=== PATIENT | male | born 1950 | race Two or more races ===

== ENCOUNTER → 2024-03-09 | Outpatient (BNVA) | payer MEDICARE, MEDICAID, SELFPAY | END | disposition home or self-care (01) | PROVIDERS: Visit Provider Urology | DX: C61 Malignant neoplasm of prostate (principal); R97.20 Elevated prostate specific antigen [PSA]; I10 Essential (primary) hypertension | CPT/HCPCS: 99212; G0463 ==

== ENCOUNTER → 2024-04-16 | Outpatient (BNVA) | payer MEDICARE, MEDICAID, SELFPAY | END | disposition home or self-care (01) | PROVIDERS: PCP Nurse Practitioner Family; Referring Provider Nurse Practitioner Family; Visit Provider Urology | DX: C61 Malignant neoplasm of prostate (principal); Z90.79 Acquired absence of other genital organ(s); I10 Essential (primary) hypertension; E78.00 Pure hypercholesterolemia, unspecified; Z87.891 Personal history of nicotine dependence | CPT/HCPCS: 99212; G0463 ==

== ENCOUNTER → 2024-04-24 | Outpatient (BNVA) | payer MEDICARE, MEDICAID, SELFPAY | END | disposition home or self-care (01) | PROVIDERS: PCP Nurse Practitioner Family; Referring Provider Nurse Practitioner Family; Visit Provider Urology | DX: C61 Malignant neoplasm of prostate (principal); Z46.6 Encounter for fitting and adjustment of urinary device; I10 Essential (primary) hypertension; E78.00 Pure hypercholesterolemia, unspecified | CPT/HCPCS: 51600; 74430; 96372; 99212; J1580; Q9958; G0463 ==

== ENCOUNTER → 2024-04-24 | Outpatient (CLI) | payer MEDICARE, MEDICAID, SELFPAY ==
--- NOTE | 2024-04-24 10:13 | XR_ITS ---
Examination: Cystogram 15 spot fluoroscopic films of the bladder AP WREN SANTO crosstable lateral AP overhead pelvic films Fluoroscopy Exam date and time: April 24, 2024 1053 hours INDICATIONS: Diagnosis malignant neoplasm prostate post prostatectomy TECHNIQUE AND FINDINGS: Bladder filled with 150 cc Cystografin The bladder appears intact on the multiple spot fluoroscopic views No ureteral reflux Fluoroscopy 0.3 minutes radiation dose 32.04 milligray 15 spot fluoroscopic films IMPRESSION: Intact urinary bladder
== END | disposition home or self-care (01) ==
PROVIDERS: PCP Urology; Referring Provider Urology; Visit Provider Urology
DX: C61 Malignant neoplasm of prostate (principal)
CPT/HCPCS: 51600; 74430; Q9958

== ENCOUNTER → 2024-07-17 | Outpatient (CLI) | payer MEDICARE, SELFPAY ==
[2024-07-17 10:56] LABS: Prostate Specific Antigen 1.11 ng/mL (0-4.00)
== END | disposition home or self-care (01) ==
LOC: COPL 09:10
PROVIDERS: PCP Urology; Referring Provider Urology; Visit Provider Urology
DX: C61 Malignant neoplasm of prostate (principal)
CPT/HCPCS: 36415; 84153

== ENCOUNTER → 2024-07-24 | Outpatient (BNVA) | payer MEDICARE, SELFPAY | END | disposition home or self-care (01) | PROVIDERS: PCP Nurse Practitioner Family; Referring Provider Nurse Practitioner Family; Visit Provider Urology | DX: C61 Malignant neoplasm of prostate (principal); N52.9 Male erectile dysfunction, unspecified; N39.3 Stress incontinence (female) (male); I10 Essential (primary) hypertension; Z90.79 Acquired absence of other genital organ(s); E66.9 Obesity, unspecified; Z87.891 Personal history of nicotine dependence; E78.00 Pure hypercholesterolemia, unspecified | CPT/HCPCS: 81003; 99213; G0463 ==

== ENCOUNTER 2024-08-27 10:20 | Outpatient (RCR) | payer MEDICARE, MEDICAID, SELFPAY ==
--- NOTE | 2024-08-08 11:56 | CTCCONSULT_ITS ---
[facility] [address] [place], [place] [address] Consultation Note Date: 08/08/2024 MR#: [id number] Name: GISSELLE MENON : 1950 Dx: C61 prostate cancer Referring physician. Timbo Dias MD History of Present Illness: Patient is a 74-year-old gentleman underwent radical prostatectomy for prostate [place] [facility] [place]. Preop PSA 28.4. Final path acinar adeno CA prostate group 5 Evans's 4+5 = 9 extraprostatic extension right posterolateral left posterior lymphatic and or vascular perineural invasion present. Linear length of margin involvement carcinoma greater than 3 mm with margins involved right apical left apical left posterior. 27 lymph nodes negative for tumor. pT3pN0. Patient had preop imaging studies bone scan CT scan 03/23/2024 no obvious mets abdomen pelvis, nonspecific uptake in spine, ribs. PSA noted to be elevated June 1824 1.11. Patient now referred for radiation oncology consultation. Patient currently feels well although he has frequency and nocturia. Past Medical History: Asthma high blood pressure history of left knee replacement Meds none allergies none Social History: Patient Icelandic-speaking is a former smoker retired Review of Systems: Has erectile difficulties nocturia frequency Physical Exam: General: Well-appearing gentleman in no acute distress HEENT: Atraumatic no cephalic extraocular is intact no oral lesion no cervical or supraclavicular adenopathy CV: Chest clear to auscultation heart regular rate and rhythm ABD: Soft no organomegaly or tenderness EXT: No signs clubbing or edema. Assessment:1, [id number] adeno CA of prostate group extraprostatic extension perineural lymphatic vascular invasion present. Preop PSA 28.4 Surgery performed 04/13/2024. [facility] PSA 1.July 17. 2. Agree with ADT plus radiation therapy to the prostate region approximately 6840 cGy using modern VMAT method. Side effects explained. 3. Thank you very much for allowing me to evaluate and manage this patient Cc: Timbo Dias MD Electronically signed by: Clemente Munson MD, DABR 08/08/2024 11:54 AM
--- NOTE | 2024-08-08 11:57 | CTCTXPLN_ITS ---
[facility] [address] [place], [place] [address] Physician Clinical Treatment Planning Note Date of Service: 08/08/2024 Name: GISSELLE MENONJAQUELIN Tijerina.: 1950 The patient has agreed to proceed with Radiation therapy. Tests and supporting medical records were interpreted to assist in defining the tumor location and extent of disease. Further imaging will be necessary to contour and delineate the volume to which the XRT will be provided. A. Treatment Intent: Curative B. Modality: 10 MV C. Requested Technique: VMAT D. Treatment Site: Prostate E. Critical structures to be contoured on plan: F. In order to accomplish this plan, I am ordering/Prescribing the followin. Simulations (s) will be performed to accomplish a reproducible treatment position, to determine optimal treatment portals/beam arrangements, to design beam modifying devices and verify treatment portals on patient prior to the commencement of Radiation Therapy. Pelvis 2. Devices; for immobilization and beam shaping: Vac-Deanna 3. CT Guidance for placement of XRT hernandez Scan area: 4. Portal images Frequency: 5. Invivo transit dose measurement once per week on all VMAT patients. 6. Special Physics Consult Requested for: 7. Other requests: G. Dose Objectives: Electronically signed by: Clemente Munson M.D. 08/08/2024 11:55 AM
--- NOTE | 2024-08-08 11:58 | CTCTXPLNST_ITS ---
Radiation Oncology Treatment Planning Sheet Name: GISSELLE MENON MR#: [id number] : 1950 Dx: C61 Malignant neoplasm of prostate Date of Service: 08/08/2024 Account #: ?? Pt Treatment Intent: curative palliative other: Stage: Procedure CPT # Ordered Spec. Procedure 63652 Ferreira Complex (set-up) 30770 Pelvis 1 Ferreira Simple 41103 IMRT Plan 84611 1 MLC Devices VMAT 21588 3 Ferreira 3 D 14397 TRTMT dev Complex 35239 Vac-Deanna 1 TRTMT dev simple 52681 Basic Adriano 64682 6 Special Dosimetry 13667 Spec Physics 70305 Port Films 06397 SRS Cranial/1FX 63849 SBR 5 FX or Less /ex: 5 = 5 fx 57842 IMRT Simple 33847 6840 38 IMRT Complex 49596 IGRT 34119 35 Rad del com 6-10 28185 Rad del com 11- 40158 Cont Med Physics 35225 7 Treatment Planning 46874 1 Rad del com 20 mev 06508 Rad del inter 610 87076 Rad del inter 11 32847 Rad del simple 6-10 21527 Rad del simple 11-19 41987 Special Port Plan 54142 TRTMT dev inter 55404 Isodose Complex 53542 Isodose simple 41365 Resp Motion Mgmt Simulation 69373 Placement of Fiducial Markers 73007 Electronically Signed By: Clemente Munson MD, DABR 08/08/2024 11:56 AM
== END 2024-08-27 23:59 | disposition home or self-care (01) ==
LOC: SCTC 10:20
PROVIDERS: Referring Provider Urology; Visit Provider Radiology Therapeutic Radiology
DX: Z51.0 Encounter for antineoplastic radiation therapy (principal); C61 Malignant neoplasm of prostate; Z90.79 Acquired absence of other genital organ(s)
CPT/HCPCS: 77014; 77290; 77300; 77301; 77334; 77336; 77338; 77385; 96402; 99213; J9217; G0463

== ENCOUNTER 2024-09-26 10:19 | Outpatient (RCR) | payer MEDICARE, MEDICAID, SELFPAY | END 2024-09-26 23:59 | disposition home or self-care (01) | LOC: SCTC 10:19 | PROVIDERS: Visit Provider Radiology Therapeutic Radiology | DX: Z51.0 Encounter for antineoplastic radiation therapy (principal); C61 Malignant neoplasm of prostate; Z90.79 Acquired absence of other genital organ(s) | CPT/HCPCS: 77336; 77385 ==

== ENCOUNTER → 2024-10-12 | Outpatient (CLI) | payer MEDICARE, MEDICAID, SELFPAY ==
[2024-10-12 10:45] LABS: Prostate Specific Antigen < 0.10 ng/mL (0-4.00)
== END | disposition home or self-care (01) ==
LOC: COPL 09:07
PROVIDERS: Referring Provider Urology; Visit Provider Urology
DX: C61 Malignant neoplasm of prostate (principal)
CPT/HCPCS: 36415; 84153

== ENCOUNTER 2024-10-24 10:40 | Outpatient (RCR) | payer MEDICARE, MEDICAID, SELFPAY | END 2024-10-27 23:59 | disposition home or self-care (01) | LOC: SCTC 10:40 | PROVIDERS: Visit Provider Radiology Therapeutic Radiology | DX: Z51.0 Encounter for antineoplastic radiation therapy (principal); C61 Malignant neoplasm of prostate; Z90.79 Acquired absence of other genital organ(s) | CPT/HCPCS: 77336; 77385; 99212; G0463 ==

== ENCOUNTER → 2024-10-30 | Outpatient (BNVA) | payer MEDICARE, MEDICAID, SELFPAY | END | disposition home or self-care (01) | PROVIDERS: PCP Nurse Practitioner Family; Referring Provider Nurse Practitioner Family; Visit Provider Urology | DX: C61 Malignant neoplasm of prostate (principal); Z92.3 Personal history of irradiation; Z90.79 Acquired absence of other genital organ(s); I10 Essential (primary) hypertension; N52.9 Male erectile dysfunction, unspecified; N39.3 Stress incontinence (female) (male); E66.9 Obesity, unspecified; Z68.29 Body mass index [BMI] 29.0-29.9, adult; E78.00 Pure hypercholesterolemia, unspecified; Z87.891 Personal history of nicotine dependence | CPT/HCPCS: 81003; 99212; G0463 ==

== ENCOUNTER 2024-11-20 08:18 | Outpatient (RCR) | payer MEDICARE, MEDICAID, SELFPAY | END 2024-11-26 23:59 | disposition home or self-care (01) | LOC: SCTC 08:18 | PROVIDERS: PCP Nurse Practitioner Family; Referring Provider Nurse Practitioner Family; Visit Provider Radiology Therapeutic Radiology | DX: Z51.11 Encounter for antineoplastic chemotherapy (principal); C61 Malignant neoplasm of prostate; Z92.3 Personal history of irradiation | CPT/HCPCS: 96402; J9217 ==

== ENCOUNTER 2024-12-11 09:30 | Outpatient (AMB) | payer MEDICARE, MEDICAID, SELFPAY ==
[2024-12-11 10:07] VITALS: BP 127/68; PULSE 74; RESP 18; TEMP 36.7; O2SAT 95
--- NOTE | 2024-12-11 10:07 | ORTHONT_ITS ---
Vital signs 12/11/24 10:07 Height 1.7 m Height Method Stated Weight 86.778 kg Weight Measurement Method Standing Scale BMI 30.0 BP 127/68 Blood Pressure Source Automatic Cuff Blood Pressure Location Right Upper Arm Position Sitting Respiration 18 Pulse 74 Pulse Source Monitor Temp 98.0 F Temp Source Temporal Artery Scan Pulse Oximetry (%) 95 Oxygen Delivery Method Room Air Med/Allergies Allergies & Medications Allergies No Known Drug Allergies Allergy (Verified 12/11/24 10:07) Medication Reconciliation losartan 50 mg tablet 50 mg PO QDAY 10/14/23 [History Confirmed 12/11/24] atorvastatin 20 mg tablet 20 mg PO QDAY 11/03/23 [History Confirmed 12/11/24] tamsulosin 0.4 mg capsule 0.4 mg PO QDAY 10/30/24 [History Confirmed 12/11/24] Exam Exam Patient is in no acute distress and is cooperative with the examination today. Patient has a normal mood and affect. Breathing is nonlabored. In no respiratory distress. Bilateral extremities were evaluated and demonstrates sensation intact to light touch. Palpable pedal pulses are present. No significant edema is present. Left knee incision is clean dry and intact. ROM is 0-100 degrees xrays demonstrate a left total knee replacment in good alignment and position. His right knee demonstrates varus deformity and severe arthritis with complete obliteration of the medial joint space Assessment and Plan Problem List (1) Bilateral primary osteoarthritis of knee: Status: Acute Plan: Patient is a 73-year-old male with bilateral knee osteoarthritis with significant severity. he is doing well status post left total knee replacement. He is 6 weeks out from surgery and is very happy. He would like to get his right knee replaced. He is failed conservative treatment including multiple injections, anti-inflammatories, and physical therapy. He reports that his right knee is actually limiting him with his left knee physical therapy. We can do a total knee replacement if he is cleared from the urology standpoint. The nature and purpose of the total knee replacement, alternative method(s) of treatment, the material risks involved, and the possibility of complications were fully explained to the patient. The patient does NOT have any of the following contraindications to TKA: - Active infection of the knee joint, OR - Active systemic bacteremia, OR - Active skin infection or open wound at surgical site, OR - Neuropathic arthritis, OR - Severe, rapidly progressive neurological disease, OR - Severe medical condition that makes risks of surgery outweigh the potential benefit The patient was told the most common risks and complications associated with a total knee replacement include, but are not limited to: blood clots in the leg, fatal pulmonary embolism, dislocation of the prosthesis, intraoperative and postoperative fractures of the femur or tibia, infection, failure of the prosthesis or grafting materials, complications from anesthesia, reactions to blood transfusions, postoperative leg length inequality, instability of the knee replacement, nerve damage or injury, vascular injury, delayed wound healing, infection, other injury or even . In addition, there are risks associated with anesthesia given during this operation. Also, the patient was told that after undergoing a total knee replacement there may still be persistent pain or disability. The patient was informed that the success of this operation in part depends upon the mechanical devices which are going to be implanted and that these devices can fail or malfunction, and may need to be repaired or replaced and there are no guarantees as to the longevity of this device or its parts and that it or its parts could fail prematurely. The patient was also notified that during the course of surgery, there may be a need to use bone graft from donors, and that any bone graft used will be carefully screened for communicable diseases, including AIDS, hepatitis, Dashawn-Creutzfeldt, or other diseases, but despite the screening procedures, there is a small chance that they could contract one of these diseases. Finally, the patient was asked to follow completely and fully with all advice and recommended treatments, and that recovery and ultimate outcome are affected by their compliance with recommended treatment. We discussed the risks, benefits and treatment alternatives, and the patient is interested in proceeding with surgery. We will try to set this up as expeditiously as possible. (2) Bilateral knee pain: Status: Acute Advanced Care Planning Discussion Advance care planning discussed with:: patient Office Procedures GNS Level of Care Nursing/Assessment Patient Status: Established Patient Nursing Assessment/Reassesment: Medication Reconciliation, Update PMH in EMR and Vital Signs Coordination of Care: Complex Care and Chronic Disease 1-5, Education Complex Pt/Fam, Consent,records obtained, informed consent, Results/Orders obtained and Staff clarify orders Special Needs: Language special needs Established Patient Charge Established Patient Point Assignment: 95 Established Patient Point Charge: EP Level 3 (80-115) NH Intake Visit Data Collection New Patient or Established: Established Patient (seen at [facility] within 3 years) Reason for Visit:: FOLLOW UP ON KNEE PAIN Seen by Clinical Staff ONLY (RN/MA): No Verbal consent obtained for Telemed visit?: No Assistant Pastry Chef Required: Yes PCP or OBGYN visit in last 3 months: Yes Hx Now: No Do You Feel Safe at Home: Yes Authorities Contacted: N/A Questionairres Past Medical History Past Medical History Have you ever been diagnosed with any of the following: Neurological Problems Seizures: No Cardiology Problems Hypercholesterolemia: Yes Congestive Heart Failure: No Hypertension: Yes Respiratory Problems Chronic Obstructive Pulmonary Disease (COPD): No Pneumonia: Yes (May 2023) Smoking: No Smoking Cessation Counseling: No Smoking Exposure: No Tobacco Use: No Stomache/Intestinal Problems Obesity: Yes Genital/Urinary Problems Renal Disease: No Benign Prostatic Hyperplasia: Yes Musculoskeletal Problems Arthritis: Yes Endocrine Problems Diabetes Mellitus Type 1: No Diabetes Mellitus Type 2: No Blood Problems Anemia: Yes Other Problems Hospitalization: No Shingles: No Blood Transfusions: No Blood Transfusion Reaction: No Anesthesia Reactions: No Chicken Pox: Yes Cancer: No Surgical History Total Knee Replacement: Yes Subjective Visit Visit for: follow up visit and knee Immunization / Flu Flu Vaccine in the Last 12 Months: No Flu Vaccine Exclusion Criteria: No Exclusion Criteria History of Present Illness Chief complaint: FOLLOW UP KNEE PAIN Is a pleasant 74-year-old male with prostate cancer and significant right knee arthritis. He did well with his left knee replacement. The pain is affecting his quality life and happiness on the right. We have tried conservative treatment. He reports the right knee is bothering him significantly and he asked his urologist whether he can get surgery. He was told that he potentially. We would need to get a medical clearance Personal History Occupation: DISABLED Red flag PMH: none Pain Pain level (0-10): 1 Pain quality: aching Pain timing: night and increases with activity Associated signs & symptoms: none Ambulatory data Ambulatory device: none Treatments Improvement with previous injections: No Improvement with PT: No Improvement with NSAIDS: no Review of Systems Review of Systems: All systems negative unless otherwise noted in HPI.
== END 2024-12-11 10:23 | disposition home or self-care (01) ==
PROVIDERS: PCP Nurse Practitioner Family; Referring Provider Nurse Practitioner Family; Supervising Provider Orthopaedic Surgery Adult Reconstructive Orthopaedic Surgery; Visit Provider Orthopaedic Surgery Adult Reconstructive Orthopaedic Surgery
DX: M17.0 Bilateral primary osteoarthritis of knee (principal); Z96.652 Presence of left artificial knee joint; I10 Essential (primary) hypertension; E78.00 Pure hypercholesterolemia, unspecified
CPT/HCPCS: 99213; G0463

== ENCOUNTER → 2025-02-14 | Outpatient (CLI) | payer MEDICARE, MEDICAID, SELFPAY ==
[2025-02-14 09:48] LABS: Prostate Specific Antigen < 0.10 ng/mL (0-4.00)
== END | disposition home or self-care (01) ==
PROVIDERS: Referring Provider Urology; Visit Provider Urology
DX: R97.20 Elevated prostate specific antigen [PSA] (principal)
CPT/HCPCS: 36415; 84153

== ENCOUNTER 2025-02-20 08:40 | Outpatient (RCR) | payer MEDICARE, MEDICAID, SELFPAY ==
--- NOTE | 2025-02-19 09:30 | CTCFLWUP_ITS ---
[facility] [address] [place], [place] [address] FOLLOW-UP NOTE Date: 02/19/2025 MR#: [id number] Name: GISSELLE MENON : 1950 Dx: C61 Malignant neoplasm of prostate Identification. Patient with prostate CA preop PSA 28.4 group 5 Evans score 9 Underwent surgery pT3pN0 04/13/2024 [facility]. 27 lymph nodes negative for tumor. Extraprostatic extension present. 6840 cGy completed 10/08/2024. Completed 6 months Lupron injections most recent PSA less than 0.10 9 18 25. Doing well except for minor side effects related to hot flashes. Check labs prior to next visit. Continue Citracal twice daily Follow-up 3 months. Electronically signed by: Clemente Munson M.D. 02/19/2025 9:28 AM
== END 2025-02-26 23:59 | disposition home or self-care (01) ==
LOC: SCTC 08:40
PROVIDERS: Visit Provider Radiology Therapeutic Radiology
DX: Z51.11 Encounter for antineoplastic chemotherapy (principal); C61 Malignant neoplasm of prostate
CPT/HCPCS: 96402; 99213; J9217; G0463

== ENCOUNTER → 2025-03-01 | Outpatient (BNVA) | payer MEDICARE, MEDICAID, SELFPAY | END | disposition home or self-care (01) | PROVIDERS: PCP Nurse Practitioner Family; Referring Provider Nurse Practitioner Family; Visit Provider Urology | DX: C61 Malignant neoplasm of prostate (principal); N39.3 Stress incontinence (female) (male); N52.9 Male erectile dysfunction, unspecified; I10 Essential (primary) hypertension; E66.9 Obesity, unspecified; Z71.3 Dietary counseling and surveillance; E78.00 Pure hypercholesterolemia, unspecified | CPT/HCPCS: 81003; 99213; G0463 ==